=== PATIENT | female | born 1965 | race African-American/Black ===

== ENCOUNTER 2016-05-31 16:23 | Emergency (ER) | payer OTHER, BC ==
[~2016-05-31] VITALS: Ht 170.2 cm; Wt 86.2 kg
[~2016-05-31 16:23] MED LIST: ABILIFY10 MG PO; ADVAIR 250-501 EACH INH; ADVAIR HFA 45MC1 AER INH; ADVAIRDISKUS; ALBUTEROL INHAL17 GM IH; ATIVAN1 MG PO; BIRTH CONTROL; DECONGESTANT NA15 ML NS; DOXYCYCLINE 10100 M1 PO; ERYTHROMYCIN E3.5 G3 OPHTHALMIC; ETHINYL ESTRADIOL PO; FLONASE 0.05%50 MCG NASAL; HYDROCODON-ACE1 EAC7 PO; HYDROCODONE-AP1 EAC6 PO; IBUPROFEN 800800 M1 PO; LAMICTAL PO; LEVONORGESTREL PO; LEVOTHYROXIN0.125 M1 PO; NAPROSYN500 MG PO; NEXIUM; NORCO 5-325 TA1 EACH PO; NORFLEX100 MG PO; PREDNISONE 20 M20 MG PO; PROAIR HFA8.5 GM INH; PROAIR RESPICL90 MCG IH; SINGULAIR; SINGULAIR 10 MG10 M1; SINGULAIR 10 MG10 M1 PO; TOPAMAX 100 MG100 MG; TOPAMAX 25 MG T25 M1 PO; ULTRAM 50MG TAB50 MG PO; VALIUM2 MG PO; VALIUM5 MG PO; VENTOLIN HFA 1818 GM INH; VICODIN 5-3001 EACH PO; XANAX 0.25 MG0.25 MG PO; XANAX 0.5 MG0.5 MG PO; ZOFRAN ODT4 MG PO; ZOFRAN4 MG PO; ZYRTEC10 MG; [UNRECOGNIZED DRUG - REMARK]
[2016-05-31] MEDS ORDERED: XANAX 0.5 MG0.5 MG PO (16:32)
[2016-05-31] MEDS ORDERED: CYMBALTA60 MG PO (16:33)
[2016-05-31] MEDS ORDERED: HYDROCODONE-AP1 EAC6 PO (16:34)
[2016-05-31 18:46] VITALS: BP 143/86
== END 2016-05-31 18:47 | disposition home or self-care (01) ==
LOC: ER 16:23
DX: J02.9 Acute pharyngitis, unspecified (principal); J06.9 Acute upper respiratory infection, unspecified; J45.909 Unspecified asthma, uncomplicated; Z87.891 Personal history of nicotine dependence; Z88.0 Allergy status to penicillin; Z88.2 Allergy status to sulfonamides; Z88.5 Allergy status to narcotic agent; Z88.8 Allergy status to other drugs, medicaments and biological substances; Z90.711 Acquired absence of uterus with remaining cervical stump

== ENCOUNTER 2016-12-28 17:48 | Emergency (ER) | payer OTHER, BC ==
[~2016-12-28] VITALS: Ht 170.2 cm; Wt 90.7 kg
[~2016-12-28 17:48] MED LIST changes: +CYMBALTA60 MG PO
[2016-12-28] MEDS ORDERED: MOBIC7.5 MG PO (18:50)
[2016-12-28 19:05] VITALS: BP 141/78
== END 2016-12-28 19:06 | disposition home or self-care (01) ==
LOC: ER 17:48
DX: M25.562 Pain in left knee (principal); M79.89 Other specified soft tissue disorders; J45.909 Unspecified asthma, uncomplicated; E03.9 Hypothyroidism, unspecified; Z90.711 Acquired absence of uterus with remaining cervical stump; Z98.890 Other specified postprocedural states; Z87.891 Personal history of nicotine dependence; Z88.0 Allergy status to penicillin; Z88.1 Allergy status to other antibiotic agents; Z88.8 Allergy status to other drugs, medicaments and biological substances; Z88.2 Allergy status to sulfonamides

== ENCOUNTER 2017-03-14 18:38 | Emergency (ER) | payer OTHER, BC ==
[~2017-03-14] VITALS: Ht 170.2 cm; Wt 90.7 kg
[~2017-03-14 18:38] MED LIST changes: +MOBIC7.5 MG PO
[2017-03-14 19:32] LABS: URINE BILIRUBIN NEGATIVE (Negative); URINE BLOOD TRACE (Negative); URINE COLOR YELLOW; URINE GLUCOSE-RANDOM* NEGATIVE (Negative); URINE KETONES NEGATIVE (Negative); URINE NITRITE NEGATIVE (Negative); URINE PROTEIN (DIPSTICK) NEGATIVE (Negative); URINE UROBILINOGEN 0.2 E.U./dl (0.2-1.0)
[2017-03-14] MEDS ORDERED: PREDNISONE 20 M20 MG PO (20:25)
[2017-03-14] MEDS ORDERED: CYCLOBENZAPRINE5 MG PO (20:25)
[2017-03-14] MEDS ORDERED: HYDROCODONE-AP1 EAC6 PO (20:32)
[2017-03-14 20:44] VITALS: BP 132/75
== END 2017-03-14 20:45 | disposition home or self-care (01) ==
LOC: ER 18:38
PROVIDERS: Physician Assistant
DX: G89.29 Other chronic pain (principal); M54.5 Low back pain; J45.909 Unspecified asthma, uncomplicated; E05.90 Thyrotoxicosis, unspecified without thyrotoxic crisis or storm; Z90.711 Acquired absence of uterus with remaining cervical stump; Z88.0 Allergy status to penicillin; Z88.5 Allergy status to narcotic agent; Z88.2 Allergy status to sulfonamides; Z88.1 Allergy status to other antibiotic agents; Z87.891 Personal history of nicotine dependence

== ENCOUNTER 2018-10-30 17:34 | Emergency (ER) | payer OTHER ==
[~2018-10-30] VITALS: Ht 165.1 cm; Wt 98.4 kg
[~2018-10-30 17:34] MED LIST changes: +CYCLOBENZAPRINE5 MG PO
[2018-10-30 18:32] LABS: BASOPHILS 1.1 % (0.0-2.0); EOSINOPHILS 2.5 % (0.0-3.0); HEMATOCRIT 40.1 % (37.0-47.0); HEMOGLOBIN 13.2 gm/dL (12.0-15.0); LYMPHOCYTES 39.7 % (24.0-44.0); MCH 29.2 pg (26.0-34.0); MCHC 33.1 g/dL (28.0-37.0); MCV 88.3 fL (80.0-100.0); PLATELET COUNT 275 thou/uL (150-400); POLYS 50.7 % (36.0-66.0); RBC 4.53 mil/uL (4.20-5.00); RDW 14.4 % (10.5-14.5); WBC 7.8 thou/uL (4.0-11.0)
[2018-10-30 18:36] LABS: CALCIUM 9.5 mg/dL (8.5-10.1); CREATININE 0.9 mg/dL (0.6-1.0); POTASSIUM 4.3 mmol/L (3.5-5.1)
[2018-10-30 20:09] LABS: URINE BILIRUBIN NEGATIVE (Negative); URINE BLOOD NEGATIVE (Negative); URINE CLARITY CLEAR; URINE COLOR YELLOW; URINE GLUCOSE-RANDOM* NEGATIVE (Negative); URINE KETONES NEGATIVE (Negative); URINE LEUKOCYTES-REFLEX NEGATIVE (Negative); URINE NITRITE-REFLEX NEGATIVE (Negative); URINE PROTEIN (DIPSTICK) NEGATIVE (Negative); URINE UROBILINOGEN 0.2 E.U./dl (0.2-1.0)
[2018-10-30 21:06] VITALS: BP 129/78
== END 2018-10-30 21:10 | disposition home or self-care (01) ==
LOC: ER 17:34
PROVIDERS: Emergency Medicine
DX: B34.9 Viral infection, unspecified (principal); R11.2 Nausea with vomiting, unspecified; F17.210 Nicotine dependence, cigarettes, uncomplicated; J45.909 Unspecified asthma, uncomplicated; E05.90 Thyrotoxicosis, unspecified without thyrotoxic crisis or storm; Z88.8 Allergy status to other drugs, medicaments and biological substances; Z88.0 Allergy status to penicillin; Z88.1 Allergy status to other antibiotic agents; Z88.2 Allergy status to sulfonamides; Z98.890 Other specified postprocedural states

== ENCOUNTER 2019-06-18 05:29 | Emergency (ER) | payer OTHER ==
[~2019-06-18] VITALS: Ht 170.2 cm; Wt 92.1 kg
[2019-06-18] MEDS ORDERED: SYNTHROID137 MC1 PO (07:04)
[2019-06-18 07:08] LABS: CALCIUM 9.2 mg/dL (8.5-10.1); CREATININE 0.9 mg/dL (0.6-1.0); MAGNESIUM 2.2 mg/dL (1.8-2.4)
[2019-06-18 07:13] LABS: ABSOLUTE NEUTROPHILS 3.1 thou/uL (1.4-8.2); EOSINOPHILS 2.5 % (0.0-3.0); HEMATOCRIT 40.3 % (37.0-47.0); LYMPHOCYTES 36.7 % (24.0-44.0); MCH 28.8 pg (26.0-34.0); MCHC 32.3 g/dL (28.0-37.0); MONOCYTES 5.9 % (1.0-8.0); PLATELET COUNT 283 thou/uL (150-400); POLYS 53.9 % (36.0-66.0); RBC 4.53 mil/uL (4.20-5.00); RDW 14.8 % (10.5-14.5); WBC 5.7 thou/uL (4.0-11.0)
[2019-06-18 11:58] VITALS: BP 117/64
== END 2019-06-18 12:00 | disposition home or self-care (01) ==
LOC: ER 05:29
PROVIDERS: Emergency Medicine
DX: R51 Headache (principal); E05.90 Thyrotoxicosis, unspecified without thyrotoxic crisis or storm; J45.909 Unspecified asthma, uncomplicated; Z87.891 Personal history of nicotine dependence; Z88.1 Allergy status to other antibiotic agents; Z88.5 Allergy status to narcotic agent; Z88.0 Allergy status to penicillin; Z88.2 Allergy status to sulfonamides; Z98.890 Other specified postprocedural states

== ENCOUNTER 2020-05-22 04:53 | Emergency (ER) | payer OTHER ==
[~2020-05-22] VITALS: Ht 170.2 cm; Wt 88.9 kg
[~2020-05-22 04:53] MED LIST changes: +SYNTHROID137 MC1 PO
[2020-05-22 06:19] LABS: ABSOLUTE NEUTROPHILS 3.7 thou/uL (1.4-8.2); EOSINOPHILS 2.6 % (0.0-3.0); HEMOGLOBIN 13.1 gm/dL (12.0-15.0); LYMPHOCYTES 33.2 % (24.0-44.0); MCH 29.1 pg (26.0-34.0); MCV 91.1 fL (80.0-100.0); MONOCYTES 6.4 % (1.0-8.0); PLATELET COUNT 292 thou/uL (150-400); POLYS 56.8 % (36.0-66.0); RDW 14.4 % (10.5-14.5); WBC 6.5 thou/uL (4.0-11.0)
[2020-05-22 06:30] LABS: CALCIUM 9.6 mg/dL (8.5-10.1); POTASSIUM 4.2 mmol/L (3.5-5.1)
[2020-05-22 06:36] LABS: ALBUMIN 3.8 g/dL (3.4-5.0); TOTAL BILIRUBIN 0.3 mg/dL (0.2-1.0); TOTAL PROTEIN 7.4 g/dL (6.4-8.2)
[2020-05-22] MEDS ORDERED: ZOFRAN ODT4 MG PO (06:58)
[2020-05-22 07:08] VITALS: BP 130/94
[2020-05-22 07:16] LABS: URINE BILIRUBIN NEGATIVE (Negative); URINE BLOOD NEGATIVE (Negative); URINE CLARITY CLEAR; URINE COLOR YELLOW; URINE GLUCOSE-RANDOM* NEGATIVE (Negative); URINE KETONES NEGATIVE (Negative); URINE LEUKOCYTES-REFLEX NEGATIVE (Negative); URINE NITRITE-REFLEX NEGATIVE (Negative); URINE PROTEIN (DIPSTICK) NEGATIVE (Negative); URINE UROBILINOGEN 0.2 E.U./dl (0.2-1.0)
== END 2020-05-22 07:09 | disposition home or self-care (01) ==
LOC: ER 04:53
PROVIDERS: Emergency Medicine
DX: R11.2 Nausea with vomiting, unspecified (principal); R19.7 Diarrhea, unspecified; R05 Cough; J45.909 Unspecified asthma, uncomplicated; Z79.899 Other long term (current) drug therapy; Z87.891 Personal history of nicotine dependence; Z88.0 Allergy status to penicillin; Z88.1 Allergy status to other antibiotic agents; Z88.2 Allergy status to sulfonamides; Z88.8 Allergy status to other drugs, medicaments and biological substances; Z20.828 Contact with and (suspected) exposure to other viral communicable diseases

== ENCOUNTER 2020-07-23 11:26 | Emergency (ER) | payer OTHER ==
[~2020-07-23] VITALS: Ht 170.2 cm; Wt 83.0 kg
[2020-07-23] MEDS ORDERED: BENADRYL25 MG PO (13:32)
[2020-07-23] MEDS ORDERED: PREDNISONE 20 M20 M1 PO (13:32)
[2020-07-23 14:50] VITALS: BP 132/71
== END 2020-07-23 14:50 | disposition home or self-care (01) ==
LOC: ER 11:26
DX: T78.40XA Allergy, unspecified, initial encounter (principal); J45.909 Unspecified asthma, uncomplicated; Z87.891 Personal history of nicotine dependence; Z79.899 Other long term (current) drug therapy; Z88.0 Allergy status to penicillin; Z88.1 Allergy status to other antibiotic agents; Z88.2 Allergy status to sulfonamides; Z88.8 Allergy status to other drugs, medicaments and biological substances; Y92.89 Other specified places as the place of occurrence of the external cause